=== PATIENT | female | born 1990 | race Caucasian/White ===

== ENCOUNTER 2016-10-22 10:06 | Emergency (ER) | payer MEDICAID ==
[2010-09-09 22:32] VITALS: BMI 31.4
[2016-10-22 11:04] LABS: APPEARANCE HAZY (CLEAR); COLOR YELLOW (YELLOW); GLUCOSE NEGATIVE (NEGATIVE); LEUKOCYTE ESTERASE 2+ (NEGATIVE); NITRITE NEGATIVE (NEGATIVE); PROTEIN TRACE mg/dL (NEGATIVE)
[2016-10-22 11:05] LABS: BACTERIA MODERATE /hpf (NONE SEEN); BILIRUBIN NEGATIVE (NEGATIVE); EPITHELIAL CELLS 0-5 /hpf (0-5); HYALINE CAST OCC /lpf (NONE SEEN); KETONE LARGE mg/dL (NEGATIVE); MUCUS >1+ /lpf (NONE SEEN)
[2016-10-22 11:33] LABS: HCG URINE NEGATIVE (NEGATIVE)
[2016-10-23 22:08] LABS: CHLAMYDIA TRACHOMATIS, NAA Negative (Negative)
== END 2016-10-22 13:01 | disposition home or self-care (01) ==
LOC: D.ER 10:06
PROVIDERS: Emergency Medicine; Nurse Practitioner Acute Care
DX: N76.0 Acute vaginitis (principal); E07.9 Disorder of thyroid, unspecified

== ENCOUNTER 2016-11-02 07:56 | Emergency (ER) | payer MEDICAID ==
[2010-09-09 22:32] VITALS: BMI 31.4
[2016-11-02 08:31] LABS: APPEARANCE CLEAR (CLEAR); BACTERIA FEW /hpf (NONE SEEN); BILIRUBIN NEGATIVE (NEGATIVE); COLOR YELLOW (YELLOW); EPITHELIAL CELLS NSEEN /hpf (0-5); GLUCOSE NEGATIVE (NEGATIVE); KETONE NEGATIVE (NEGATIVE); LEUKOCYTE ESTERASE NEGATIVE (NEGATIVE); MUCUS <1+ /lpf (NONE SEEN); NITRITE NEGATIVE (NEGATIVE); PROTEIN NEGATIVE (NEGATIVE); RED CELLS - URINE 0-5 /hpf (0-5); SPECIFIC GRAVITY 1.015 (1.005-1.020); UROBILINOGEN NORMAL (NORMAL); WHITE CELLS - URINE RARE /hpf (0-5)
[2016-11-02 08:42] LABS: HCG URINE NEGATIVE (NEGATIVE)
[2016-11-02 08:51] LABS: UDS - AMPHET NEGATIVE QUAL (NEGATIVE); UDS - BARB NEGATIVE QUAL (NEGATIVE); UDS - BENZO NEGATIVE QUAL (NEGATIVE); UDS - COCAINE NEGATIVE QUAL (NEGATIVE); UDS - METH NEGATIVE QUAL (NEGATIVE); UDS - OPIATE NEGATIVE QUAL (NEGATIVE); UDS - PCP NEGATIVE QUAL (NEGATIVE); UDS - THC NEGATIVE QUAL (NEGATIVE)
== END 2016-11-02 10:56 | disposition home or self-care (01) ==
LOC: D.ER 07:56
PROVIDERS: Emergency Medicine
DX: A59.9 Trichomoniasis, unspecified (principal); E07.9 Disorder of thyroid, unspecified

== ENCOUNTER 2017-03-04 09:27 | Emergency (ER) | payer MEDICAID ==
[2010-09-09 22:32] VITALS: BMI 31.4
== END 2017-03-04 10:23 | disposition home or self-care (01) ==
LOC: D.ER 09:27
DX: H10.33 Unspecified acute conjunctivitis, bilateral (principal)

== ENCOUNTER 2017-06-07 07:56 | Emergency (ER) | payer MEDICAID ==
[2010-09-09 22:32] VITALS: BMI 31.4
== END 2017-06-07 09:40 | disposition home or self-care (01) ==
LOC: D.ER 07:56
DX: K61.1 Rectal abscess (principal); F17.200 Nicotine dependence, unspecified, uncomplicated

== ENCOUNTER 2017-11-05 11:22 | Emergency (ER) | payer MEDICAID ==
[2010-09-09 22:32] VITALS: BMI 31.4
== END 2017-11-05 15:52 | disposition home or self-care (01) ==
LOC: D.ER 11:22
DX: B34.9 Viral infection, unspecified (principal); K52.9 Noninfective gastroenteritis and colitis, unspecified

== ENCOUNTER 2018-06-26 07:10 | Emergency (ER) | payer MEDICAID ==
[~2018-06-26] VITALS: Ht 160 cm; Wt 83.2 kg
[2018-06-26 07:19] VITALS: Ht 160 cm; Wt 83.2 kg
[2018-06-26 07:36] LABS: BASOPHILS 0.4 % (0-2); EOSINOPHILS 2.6 % (0-7); HEMATOCRIT 38.9 % (36.0-48.0); HEMOGLOBIN 13.2 g/dL (12-16); IMMATURE GRANULOCYTES 0.1 % (0-5); LYMPHOCYTES 27.4 % (15-50); MCH 28.7 pg (26.0-34.0); MCHC 33.9 g/dL (31.0-37.0); MCV 84.6 fL (80.0-100.0); MEAN PLATELET VOLUME 10.5 fL (7.4-10.4); MONOCYTES 7.3 % (2-11); NEUTROPHILS 62.2 % (40-80); PLATELET COUNT 223 10x3/uL (130-400); RDW 14.4 % (11.5-14.5); WBC 8.9 10x3/uL (4.8-10.8)
[2018-06-26 07:47] LABS: APTT 29.5 SECONDS (22.8-39.4); INR 1.04 (0.85-1.17); PROTIME 13.2 SECONDS (11.6-15.0)
[2018-06-26 07:49] LABS: D-DIMER-QUANTITATIVE < 0.27 ug/mLFEU (0.20-0.54)
[2018-06-26 07:51] LABS: ALBUMIN 3.9 g/dL (3.4-5.0); ALKALINE PHOSPHATASE 59 U/L (46-116); ALT (SGPT) 20 U/L (10-68); BILIRUBIN - TOTAL 0.41 mg/dL (0.2-1.3); CALC OSMOLALITY 272 mosm/kg (275-300); CALCIUM 8.8 mg/dL (8.5-10.1); CARBON DIOXIDE 26.1 mmol/L (21.0-32.0); CHLORIDE - SERUM 103 mmol/L (98-107); CREATININE - SERUM 0.8 mg/dL (0.6-1.3); GLUCOSE 98 mg/dL (74-106); POTASSIUM - SERUM 3.8 mmol/L (3.5-5.1); SODIUM 137 mmol/L (136-145); UREA NITROGEN 10 mg/dL (7-18); eGFR NON AFRICAN AMERICAN 90 mL/min (90-120)
[2018-06-26 08:02] LABS: CKMB 1.1 U/L (0.0-3.6); CREATINE KINASE 227 UL (21-215); TROPONIN-I < 0.017 ng/mL (0.000-0.060)
[2018-06-26] MEDS ORDERED: ACETAMINOPHEN500 M1 PO (11:34)
[2018-06-26] MEDS ORDERED: CYCLOBENZAPRINE10 MG PO (11:34)
[2018-06-26] MEDS ORDERED: IBUPROFEN800 MG PO (11:34)
[2018-06-26 13:51] VITALS: BP 116/66
== END 2018-06-26 12:28 | disposition home or self-care (01) ==
LOC: D.ER 07:10
PROVIDERS: Family Medicine
DX: R07.9 Chest pain, unspecified (principal); R53.1 Weakness; E05.90 Thyrotoxicosis, unspecified without thyrotoxic crisis or storm

== ENCOUNTER 2018-07-21 15:33 | Emergency (ER) | payer MEDICAID ==
[~2018-07-21] VITALS: Ht 160 cm; Wt 83.2 kg
[~2018-07-21 15:33] MED LIST: ACETAMINOPHEN500 M1 PO; CYCLOBENZAPRINE10 MG PO; IBUPROFEN800 MG PO
[2018-07-21 15:40] VITALS: Ht 160 cm; Wt 83.2 kg
[2018-07-21 16:13] LABS: BASOPHILS 0.2 % (0-2); EOSINOPHILS 2.7 % (0-7); HEMATOCRIT 46.5 % (36.0-48.0); IMMATURE GRANULOCYTES 0.2 % (0-5); LYMPHOCYTES 20.1 % (15-50); MCH 29.3 pg (26.0-34.0); MCHC 34.4 g/dL (31.0-37.0); MCV 85.2 fL (80.0-100.0); MEAN PLATELET VOLUME 10.4 fL (7.4-10.4); MONOCYTES 8.7 % (2-11); NEUTROPHILS 68.1 % (40-80); RBC 5.46 10x6/uL (4.00-5.40); RDW 14.6 % (11.5-14.5); WBC 9.2 10x3/uL (4.8-10.8)
[2018-07-21 16:16] LABS: PLATELET COUNT 278 10x3/uL (130-400)
[2018-07-21 16:24] LABS: APPEARANCE CLEAR (CLEAR); BILIRUBIN NEGATIVE (NEGATIVE); COLOR YELLOW (YELLOW); GLUCOSE NEGATIVE (NEGATIVE); KETONE NEGATIVE (NEGATIVE); NITRITE NEGATIVE (NEGATIVE); PROTEIN NEGATIVE (NEGATIVE); SPECIFIC GRAVITY 1.015 (1.005-1.020); UROBILINOGEN NORMAL (NORMAL)
[2018-07-21 16:25] LABS: EPITHELIAL CELLS OCC /hpf (0-5); WHITE CELLS - URINE OCC /hpf (0-5)
[2018-07-21 16:27] LABS: ALBUMIN 4.2 g/dL (3.4-5.0); ALKALINE PHOSPHATASE 59 U/L (46-116); ALT (SGPT) 18 U/L (10-68); BILIRUBIN - TOTAL 0.61 mg/dL (0.2-1.3); CALC OSMOLALITY 272 mosm/kg (275-300); CALCIUM 9.2 mg/dL (8.5-10.1); CARBON DIOXIDE 20.1 mmol/L (21.0-32.0); CHLORIDE - SERUM 103 mmol/L (98-107); CREATININE - SERUM 0.9 mg/dL (0.6-1.3); GLUCOSE 102 mg/dL (74-106); POTASSIUM - SERUM 3.7 mmol/L (3.5-5.1); PROTEIN - SERUM 8.8 g/dL (6.4-8.2); SODIUM 137 mmol/L (136-145); UREA NITROGEN 9 mg/dL (7-18); eGFR NON AFRICAN AMERICAN 79 mL/min (90-120)
[2018-07-21] MEDS ORDERED: LOMOTIL 2.5-0.1 EAC1 PO (16:52)
[2018-07-21 17:08] VITALS: BP 114/82
[2018-07-21 18:40] LABS: HCG SERUM NEGATIVE (NEGATIVE)
== END 2018-07-21 17:10 | disposition home or self-care (01) ==
LOC: D.ER 15:33
PROVIDERS: Emergency Medicine
DX: R19.7 Diarrhea, unspecified (principal); E07.9 Disorder of thyroid, unspecified

== ENCOUNTER 2018-08-16 06:56 | Emergency (ER) | payer MEDICAID ==
[~2018-08-16] VITALS: Ht 160 cm; Wt 83.2 kg
[~2018-08-16 06:56] MED LIST changes: +LOMOTIL 2.5-0.1 EAC1 PO
[2018-08-16 07:09] VITALS: BP 130/77; Ht 160 cm; Wt 83.2 kg
[2018-08-16 07:37] LABS: APPEARANCE CLEAR (CLEAR); BILIRUBIN NEGATIVE (NEGATIVE); COLOR YELLOW (YELLOW); GLUCOSE NEGATIVE (NEGATIVE); KETONE NEGATIVE (NEGATIVE); NITRITE NEGATIVE (NEGATIVE); PROTEIN NEGATIVE (NEGATIVE); SPECIFIC GRAVITY 1.015 (1.005-1.020); UROBILINOGEN NORMAL (NORMAL)
[2018-08-16 07:39] LABS: BACTERIA FEW /hpf (NONE SEEN); EPITHELIAL CELLS 0-5 /hpf (0-5); RED CELLS - URINE 0-5 /hpf (0-5); WHITE CELLS - URINE 0-5 /hpf (0-5)
[2018-08-16] MEDS ORDERED: DIFLUCAN200 MG PO (07:57)
== END 2018-08-16 08:12 | disposition home or self-care (01) ==
LOC: D.ER 06:56
PROVIDERS: Family Medicine
DX: N76.0 Acute vaginitis (principal)

== ENCOUNTER 2018-10-07 16:58 | Emergency (ER) | payer MEDICAID ==
[~2018-10-07] VITALS: Ht 160 cm; Wt 86.4 kg
[~2018-10-07 16:58] MED LIST changes: +DIFLUCAN200 MG PO
[2018-10-07 17:06] VITALS: Ht 160 cm; Wt 86.4 kg
[2018-10-07 17:33] LABS: APPEARANCE CLEAR (CLEAR); BACTERIA MODERATE /hpf (NONE SEEN); BILIRUBIN NEGATIVE (NEGATIVE); COLOR YELLOW (YELLOW); EPITHELIAL CELLS 0-5 /hpf (0-5); GLUCOSE NEGATIVE (NEGATIVE); KETONE NEGATIVE (NEGATIVE); NITRITE NEGATIVE (NEGATIVE); PROTEIN TRACE mg/dL (NEGATIVE); RED CELLS - URINE OCC /hpf (0-5); UROBILINOGEN NORMAL (NORMAL); WHITE CELLS - URINE 0-5 /hpf (0-5)
[2018-10-07] MEDS ORDERED: TORADOL10 MG PO (19:16)
[2018-10-07] MEDS ORDERED: MACROBID100 MG PO (19:16)
[2018-10-07 19:30] VITALS: BP 131/71
== END 2018-10-07 19:30 | disposition home or self-care (01) ==
LOC: D.ER 16:58
PROVIDERS: Emergency Medicine
DX: N39.0 Urinary tract infection, site not specified (principal); R30.0 Dysuria